=== PATIENT | female | born 1935 | race African-American/Black ===

== ENCOUNTER 2016-04-07 07:25 | Emergency (ER) | payer MEDICARE, OTHER ==
--- NOTE | 2016-04-07 07:50 | ED.PDOC ---
History of Present Illness - General Chief Complaint: Syncope/Near Syncope Stated Complaint: syncopal episode Time Seen by Provider: 04/07/16 07:36 Source: patient Exam Limitations: other - Dementia - mild to moderate - History of Present Illness Initial Comments: Patient is an 81 y/o female with dementia who is a resident of [facility]. She was sent because she fell this AM--possibly on some water. When the nurses got her up and sat her in the chair, she had a 2 minute episode of syncope. She returned to baseline afterward. She was brought into the ED by EMS. Patient remembers falling, however does not remember the episode of syncope. She has no pain anywhere, is not experiencing any shortness of breath or nausea. Timing/Duration: 1 hour Severity: moderate Improving Factors: nothing Worsening Factors: nothing Associated Symptoms: denies symptoms Allergies/Adverse Reactions: Allergies NO KNOWN ALLERGY Allergy (Verified 04/07/16 07:39) Home Medications: Ambulatory Orders Donepezil Hydrochloride [Aricept] 10 mg PO BEDTIME 02/05/15 Tramadol HCl 1 - 2 ea PO Q6H PRN #40 tab 10/03/15 Aspirin [Aspirin Adult Low Dose] 81 mg PO QAM #100 tab 10/20/15 Meawapxfxemza-Vrwn-Yflnxtzanf [Fioricet] 1 tab PO PRN PRN 04/07/16 Temazepam [Restoril] 7.5 mg PO BEDTIME 04/07/16 Review of Systems - Review of Systems Constitutional: States: no symptoms reported EENTM: States: no symptoms reported Respiratory: States: no symptoms reported Cardiology: States: no symptoms reported Genitourinary: States: no symptoms reported Musculoskeletal: States: no symptoms reported Skin: States: no symptoms reported Neurological: States: no symptoms reported Endocrine: States: no symptoms reported Hematologic/Lymphatic: States: no symptoms reported All other Systems: Reviewed and Negative Past Medical History (General) - Patient Medical History Hx Seizures: No Hx Stroke: No Hx Dementia: Yes - Dx'ed 10/2014 Hx Asthma: No Hx of COPD: No Hx Cardiac Disorders: No Hx Congestive Heart Failure: No Hx Pacemaker: No Hx Hypertension: No Hx Thyroid Disease: No Hx Diabetes: Yes Hx Gastroesophageal Reflux: No Hx Renal Disease: No Hx Cancer: No Hx of HIV: No Hx Hepatitis C: No Hx MRSA: No - Vaccination History Hx Tetanus, Diphtheria Vaccination: No Hx Influenza Vaccination: No Hx Pneumococcal Vaccination: No - Social History Hx Tobacco Use: No Hx Alcohol Use: No Hx Substance Use: No Hx Substance Use Treatment: No Hx Depression: No Hx Physical Abuse: No Hx Emotional Abuse: No Hx Suspected Abuse: No - Activities of Daily Living Correction/Assisted Living (if applicable):: [facility] (if applicable):: None - Female History Patient is a Female of Child Bearing Age (10 -59 yrs old): No Patient : No Family Medical History - Family History Mother Family History: Unknown Living Status: Physical Exam - Physical Exam General Appearance: Alert, Comfortable, Frail, No apparent distress Eye Exam: bilateral normal Ears, Nose, Throat: hearing grossly normal, normal ENT inspection Respiratory: lungs clear, normal breath sounds, no respiratory distress, no accessory muscle use Cardiovascular/Chest: no edema, no JVD, bradycardia Gastrointestinal/Abdominal: normal bowel sounds, non tender, soft, no organomegaly Extremity: non-tender, normal inspection, no pedal edema Neurologic: alert, depressed affect, disoriented x 3 - Oriented to person only. She does know her birthdate and that she lives in [place]. Skin Exam: normal color, warm/dry Progress - Progress Progress: 04/07/16 08:43 Although the patient is bradycardia while laying down, when she gets up, her heart rate increases normally. Her CK and CK-MB are both elevated, however their ratio is normal. The Troponin I is normal. Therefore, I believe the elevated CK-MB is a result of Patient's fall as opposed to any cardiac issue. 04/07/16 11:31 - Results/Orders Results/Orders: 04/07/16 07:34 Temperature 97.0 F L Pulse Rate [ 57 L pulse ox] Respiratory 20 Rate Blood Pressure 128/74 [Left Arm] O2 Sat by Pulse 99 Oximetry 04/07/16 07:45 EKG STAT 04/07/16 08:33 URINALYSIS Stat 04/07/16 08:37 CARDIAC ENZYME GROUP Stat 04/07/16 08:38 EKG Assessment ONCE 04/07/16 08:45 EKG STAT Laboratory Results WBC 3.2 K/mm3 (4.8-10.8) L 04/07/16 07:20 RBC 4.58 M/mm3 (4.20-5.40) 04/07/16 07:20 Hgb 12.8 gm/dL (12.0-16.0) 04/07/16 07:20 Hct 39.3 % (36.0-47.0) 04/07/16 07:20 MCV 85.8 fl (81.0-99.0) 04/07/16 07:20 MCH 27.9 pg (27.0-31.0) 04/07/16 07:20 MCHC 32.5 g/dL (33.0-37.0) L 04/07/16 07:20 RDW 15.8 % (11.5-14.5) H 04/07/16 07:20 Plt Count 177 K/mm3 (130-400) 04/07/16 07:20 MPV 8.1 fl (7.40-10.4) 04/07/16 07:20 Absolute Neuts (auto) 1.10 K/uL (1.8-6.8) L 04/07/16 07:20 Absolute Lymphs (auto) 1.60 K/uL (1.0-3.4) 04/07/16 07:20 Absolute Monos (auto) 0.40 K/uL (0.2-0.8) 04/07/16 07:20 Absolute Eos (auto) 0.00 K/uL (0.0-0.4) 04/07/16 07:20 Absolute Basos (auto) 0.10 K/uL (0.0-0.1) 04/07/16 07:20 Neutrophils % 33.4 % (42.0-78.0) L 04/07/16 07:20 Lymphocytes % 49.7 % (20.0-50.0) 04/07/16 07:20 Monocytes % 13.4 % (2.0-9.0) H 04/07/16 07:20 Eosinophils % 1.2 % (1.0-5.0) 04/07/16 07:20 Basophils % 2.3 % (0.0-2.0) H 04/07/16 07:20 Differential Comment Cancelled 04/07/16 07:20 RBC Morphology Cancelled 04/07/16 07:20 PT 11.8 SECONDS (9.4-12.5) 04/07/16 07:20 INR 1.040 04/07/16 07:20 PTT (SP) 29.3 SECONDS (25.1-36.5) 04/07/16 07:20 Sodium 139 mmol/L (135-145) 04/07/16 07:20 Potassium 4.5 mmol/L (3.6-5.0) 04/07/16 07:20 Chloride 104 mmol/L (101-111) 04/07/16 07:20 Carbon Dioxide 27 mmol/L (21-31) 04/07/16 07:20 Anion Gap 12.5 (12-18) 04/07/16 07:20 BUN 23 mg/dL (7-18) H 04/07/16 07:20 Creatinine 0.69 mg/dL (0.6-1.3) 04/07/16 07:20 BUN/Creatinine Ratio 33.3 (10-20) H 04/07/16 07:20 Random Glucose 113 mg/dL (70-105) H 04/07/16 07:20 Serum Osmolality 282.0 mOsm/L (275-295) 04/07/16 07:20 Calcium 9.1 mg/dL (8.4-10.2) 04/07/16 07:20 Magnesium 2.1 mg/dL (1.8-2.5) 04/07/16 07:20 Total Bilirubin Cancelled 04/07/16 07:20 AST Cancelled 04/07/16 07:20 ALT Cancelled 04/07/16 07:20 Alkaline Phosphatase Cancelled 04/07/16 07:20 Creatine Kinase 148 IU/L (26-140) H 04/07/16 07:20 CK-MB (CK-2) 5.1 ng/mL (0.0-4.4) H* 04/07/16 07:20 CK-MB (CK-2) % Not Reportable 04/07/16 07:20 Troponin I < 0.02 ng/mL (0.01-0.05) 04/07/16 07:20 B-Natriuretic Peptide 59.7 pg/ml (0-100) 04/07/16 07:20 Serum Total Protein Cancelled 04/07/16 07:20 Albumin Cancelled 04/07/16 07:20 Globulin Cancelled 04/07/16 07:20 Albumin/Globulin Ratio Cancelled 04/07/16 07:20 - EKG/XRAY/CT EKG: Nico - 55 bpm, no ST T wave changes, Changed from Comments: NML axis, NML intervals--Sinus bradycardia Xray Comments: Mild atelectasis vs. consolidation RLL, cardiomegaly, osteopenia Departure - Departure Clinical Impression: Bradycardia, Elevated CK, Elevated CK-MB level, Vasovagal syncope Fall from standing Qualifiers: Encounter type: initial encounter Qualifier Code: (W19.XXXA) Unspecified fall, initial encounter Time of Disposition: 11:33 Disposition: Discharge to SNF Condition: Good Departure Forms: ED Discharge - Pt. Copy, Patient Portal Self Enrollment Diet: resume usual diet Referrals: Kaitlynn Mosher NP [Primary Care Provider] - 1-2 Weeks Home Medications: Ambulatory Orders Donepezil Hydrochloride [Aricept] 10 mg PO BEDTIME 02/05/15 Tramadol HCl 1 - 2 ea PO Q6H PRN #40 tab 10/03/15 Aspirin [Aspirin Adult Low Dose] 81 mg PO QAM #100 tab 10/20/15 Ngkefrvlllmam-Yjnr-Bdwsoibaga [Fioricet] 1 tab PO PRN PRN 04/07/16 Temazepam [Restoril] 7.5 mg PO BEDTIME 04/07/16 Additional Instructions: Follow up in ED if symptoms worsen.
--- NOTE | 2016-04-07 08:00 | RAD ---
Study: Single Frontal View of the Chest. Indication:Syncope/cardiac workup Comparison: October 12, 2015. Impression: NG tube removed. Cardiomegaly without failure. Transverse aorta. Lungs hyperexpanded. Mild right basilar atelectasis versus developing consolidation. Short-term follow-up recommended. No pleural effusion or pneumothorax. Osteopenia. If this is a new finding, DEXA scan recommended as well as evaluation for possible osteoporosis treatment. Electronically signed by: Zander Flaherty MD 04/07/2016 7:59 AM [employer]
--- NOTE | 2016-04-07 10:37 | RAD ---
Study: Single Frontal View of the Chest. Indication:Syncope/cardiac workup Comparison: October 12, 2015. Impression: NG tube removed. Cardiomegaly without failure. Transverse aorta. Lungs hyperexpanded. Mild right basilar atelectasis versus developing consolidation. Short-term follow-up recommended. No pleural effusion or pneumothorax. Osteopenia. If this is a new finding, DEXA scan recommended as well as evaluation for possible osteoporosis treatment. Electronically signed by: Zander Flaherty MD 04/07/2016 7:59 AM [employer]
[2016-04-07 11:25] VITALS: TEMP 94.6
[2016-04-07 11:42] VITALS: BP 143/53; O2SAT 95
== END 2016-04-07 11:42 ==
LOC: ER 07:25
DX: R55 Syncope and collapse (principal); R00.1 Bradycardia, unspecified; R79.89 Other specified abnormal findings of blood chemistry; F03.90 Unspecified dementia, unspecified severity, without behavioral disturbance, psychotic disturbance, mood disturbance, and anxiety; E11.9 Type 2 diabetes mellitus without complications; Z79.82 Long term (current) use of aspirin; Z79.899 Other long term (current) drug therapy; W01.0XXA Fall on same level from slipping, tripping and stumbling without subsequent striking against object, initial encounter; Y92.129 Unspecified place in nursing home as the place of occurrence of the external cause